=== PATIENT | male | born 1960 | race Caucasian/White ===

== ENCOUNTER 2020-01-01 19:10 | Emergency (ER) | payer OTHER ==
[~2020-01-01] VITALS: Ht 188 cm; Wt 83.9 kg
== END 2020-01-01 23:38 | disposition home or self-care (01) ==
LOC: ER 19:10
DX: S39.012A Strain of muscle, fascia and tendon of lower back, initial encounter (principal); M54.2 Cervicalgia; V49.9XXA Car occupant (driver) (passenger) injured in unspecified traffic accident, initial encounter
CPT/HCPCS: 99283; L0160